=== PATIENT | male | born 1960 | race Caucasian/White ===

== ENCOUNTER 2020-12-02 23:36 | Outpatient (REF) | payer OTHER, SELFPAY | END 2020-12-02 23:37 | disposition home or self-care (01) | LOC: NCHCN 23:36 | PROVIDERS: PCP Physician Assistant; Visit Provider Family Medicine | DX: Z20.822 Contact with and (suspected) exposure to COVID-19 (principal) | CPT/HCPCS: U0003 ==

== ENCOUNTER 2023-04-26 17:09 | Outpatient (REF) | payer OTHER, SELFPAY ==
[2023-04-26 18:47] LABS: ALT 50 U/L (16-63); AST 21 U/L (15-37); Alkaline Phosphatase 77 U/L (46-116); BUN 19 mg/dL (7-18); Bilirubin, Total 0.9 mg/dL (0.2-1.0); C-Reactive Protein 0.35 mg/dL (0.0-0.3); CREATININE 1.1 mg/dL (0.70-1.30); Calcium 9.1 mg/dL (8.5-10.1); Chloride 103 mmol/L (98-107); Glucose 85 mg/dL (74-106); Potassium 4.8 mmol/L (3.5-5.1); Sodium 138 mmol/L (136-145); Total Protein 7.1 g/dL (6.4-8.2); Uric Acid 5.5 mg/dL (3.5-7.2)
[2023-04-26 18:57] LABS: Abs Immature Grans 0.08 10^3/uL (0.0-0.06); Absolute Basophil Count 0.05 10^3/uL (0.0-0.2); Absolute Eosinophil Count 0.16 10^3/uL (0.0-0.7); Absolute Lymphocyte Count 4.22 10^3/uL (1.2-3.4); Absolute Monocyte Count 1.31 10^3/uL (0.1-0.8); Absolute Neutrophil Count 5.94 10^3/uL (1.2-6.7); Basophils % 0.4; ESR 15 mm/hr (0-20); Eosinophils % 1.4; HCT 48.5 % (40.0-50.0); HGB 16.2 g/dL (13.5-17.5); Immature Grans % 0.7; Lymphocytes % 35.9; MCH 32.1 pg (27.0-33.0); MCHC 33.4 % (32.0-36.0); MCV 96 fL (80-95); Monocytes % 11.1; Neutrophils % 50.5; RBC 5.04 10^6/uL (4.36-5.78); RDW 14.3 % (11.8-14.1); RDW-SD 50.7 fL; WBC 11.76 10^3/uL (4.4-10.8)
== END 2023-04-26 17:10 | disposition home or self-care (01) ==
LOC: LBN 17:09
PROVIDERS: PCP Physician Assistant; Visit Provider Nurse Practitioner Gerontology
DX: R52 Pain, unspecified (principal); M10.9 Gout, unspecified; G60.9 Hereditary and idiopathic neuropathy, unspecified; M19.90 Unspecified osteoarthritis, unspecified site
CPT/HCPCS: 80053; 85652; 84550; 85025; 86140

== ENCOUNTER 2024-12-22 01:26 | Outpatient (CLI) | payer OTHER, SELFPAY ==
--- NOTE | 2024-12-22 07:30 | DI.RAD_ITS ---
Exam(s) XR FOOT RT COMPLETE EXAM: XR FOOT RT COMPLETE CLINICAL HISTORY: Right foot pain,M79.671. TECHNIQUE: 2D digital imaging was performed. Three views. COMPARISON: No exams were available for comparison FINDINGS: BONES: No acute fracture is present. No bony destructive lesion is seen. Large plantar calcaneal spu r. JOINTS: No dislocation present. Mild degenerative changes are noted at the 1st MTP joint. Plantar a rch is maintained. SOFT TISSUE: Normal. IMPRESSION: Prominent plantar calcaneal spur. DATA REPOSITORY: RADIATION DOSE DELIVERED:
== END 2024-12-22 01:46 ==
PROVIDERS: PCP Physician Assistant; Visit Provider Podiatrist
DX: M77.31 Calcaneal spur, right foot (principal)
CPT/HCPCS: 73630

== ENCOUNTER 2025-01-01 20:56 | Outpatient (REF) | payer OTHER, SELFPAY ==
[2025-01-01 18:42] LABS: Calculated LDL 149 mg/dL (<100); Cholesterol 246 mg/dL (<200); HDL Cholesterol 53 mg/dL (>or=40); LDL CHOLESTEROL 163 mg/dL (<100); Triglyceride 222 mg/dL (<150)
[2025-01-01 18:50] LABS: BUN 20 mg/dL (7-18); CREATININE 1.3 mg/dL (0.70-1.30); Calcium 9.4 mg/dL (8.5-10.1); Chloride 105 mmol/L (98-107); Estimated GFR 61.35 (mL/min/1.73m2); Glucose 128 mg/dL (74-106); Potassium 4.3 mmol/L (3.5-5.1); Sodium 143 mmol/L (136-145); TSH (W/Ref FT4) 2.37 uIU/mL (0.36-3.74)
== END 2025-01-01 20:57 | disposition home or self-care (01) ==
LOC: NCHCN 20:56
PROVIDERS: PCP Physician Assistant; Visit Provider Internal Medicine
DX: I16.1 Hypertensive emergency (principal)
CPT/HCPCS: 80048; 80061; 83721; 84443

== ENCOUNTER 2025-01-12 02:07 | Outpatient (CLI) | payer OTHER, SELFPAY ==
[2025-01-12] MEDS: Inhaler, Assist Device 1 EACH MC (15:33)
[2025-01-12] MEDS: Levalbuterol HFA 15 GM INH 4 PUFF IH (15:33)
--- NOTE | 2025-01-19 14:26 | W.PFT ---
Date of service: 01/12/25 Time of Service: 14:20 Pulmonary Function Test Result Indications: Dyspnea Interpretation Spirometry: No airflow limitation. Restrictive spirometry. No bronchodilator response. Impression No airflow obstruction but restrictive spirometry Clinical Correlation therefore is recommended.
== END 2025-01-12 02:08 | disposition home or self-care (01) ==
PROVIDERS: PCP Nurse Practitioner Family; Visit Provider Student in an Organized Health Care Education/Training Program
DX: F17.210 Nicotine dependence, cigarettes, uncomplicated (principal); R06.00 Dyspnea, unspecified
CPT/HCPCS: 94060

== ENCOUNTER 2025-04-14 17:31 | Outpatient (REF) | payer OTHER, SELFPAY ==
[2025-04-14 18:47] LABS: ALT 46 U/L (16-63); Anion Gap 8.2 mmol/L (3-11); BUN 15 mg/dL (7-18); CO2 30.8 mmol/L (21.0-32.0); CREATININE 1.2 mg/dL (0.70-1.30); Calcium 9.4 mg/dL (8.5-10.1); Calculated LDL 169 mg/dL (<100); Chloride 100 mmol/L (98-107); Cholesterol 243 mg/dL (<200); Estimated GFR 67.53 (mL/min/1.73m2); Glucose 170 mg/dL (74-106); HDL Cholesterol 55 mg/dL (>or=40); Sodium 139 mmol/L (136-145); Triglyceride 99 mg/dL (<150)
== END 2025-04-14 17:32 | disposition home or self-care (01) ==
LOC: NCHCN 17:31
PROVIDERS: PCP Nurse Practitioner Family; Visit Provider Internal Medicine
DX: I10 Essential (primary) hypertension (principal); E78.5 Hyperlipidemia, unspecified
CPT/HCPCS: 80048; 80061; 84460